=== PATIENT | female | born 1985 | race Caucasian/White ===

== ENCOUNTER 2018-02-14 16:43 | Emergency (ER) | payer OTHER, MEDICAID ==
[~2018-02-14] VITALS: Ht 160 cm; Wt 88.5 kg
[~2018-02-14 16:43] MED LIST: ACEPHEN650 M1 RC; AMBIEN 5 MG TABL5 M1 PO; AMITRIPTYLINE; AMITRIPTYLINE H25 M4 PO; AMITRIPTYLINE H50 M2 PO; AMITRIPTYLINE H75 M1; AMITRIPTYLINE H75 M1 PO; ATIVAN0.5 MG PO; AUGMENTIN 875875 M1 PO; AVELOX 400 MG400 MG; BENADRYL25 MG PO; BENTYL 10 MG CA10 M1 PO; BENTYL 10 MG CA10 MG PO; BENTYL 20 MG TA20 M1; BUSPAR; BUSPAR15 MG PO; CALCIUM 600 +1 EAC1 PO; CARAFATE 1 GM TA1 G1 PO; CARISOPRODOL 3350 MG PO; CIPRO250 M1 PO; CIPROFLOXACIN500 M1 PO; CLEOCIN HCL150 MG PO; CLONAZEPAM 1 MG1 M1 PO; CLONAZEPAM PO; CYCLOBENZAPRINE10 MG; CYMBALTA; DARVOCET-N 1001 EACH PO; DIAZEPAM 5 MG5 M1 PO; DILAUDID1 MG/1 ML IV PUSH; DOXEPIN; DOXYCYCLINE 10100 MG PO; DULCOLAX5 MG PO; ERYTHROMYCIN500 MG PO; FIORICET; FIORICET 50-321 EACH PO; FLAGYL500 MG PO; FLEXERIL PO; HYDROCODONE-AP1 EAC6 PO; IBUPROFEN 800800 M1 PO; KLONOPIN; LEVSIN0.125 MG PO; LIDOCAINE VISC100 M1 SWISH&SPIT; LORTAB; MAALOX ADVANCE355 M1; MAALOX ADVANCE355 M1 PO; MEDROLDOSEPACK PO; MELATONIN3 MG PO; MILK OF MA2400 MG/10 PO; MUCINEX600 MG; NAPROSYN500 MG PO; NOHOMEMEDICATIONS; NORCO 10-325 T1 EACH PO; NORCO 5-325 TA1 EACH PO; NORFLEX100 MG PO; OMEPRAZOLE 20 M20 M1; OMEPRAZOLE 20 M20 M1 PO; ONDANSETRON HCL4 M2 IV; ONDANSETRON HCL4 M2 PO; ONDANSETRON ODT4 MG PO; OXYCODONE HCL5 M1; PARAFON FORTE500 M2; PAXIL; PHENERGAN; PHENERGAN 25 MG25 M1 PO; PHENERGAN 25 MG25 MG PO; PHENERGAN25 M2 RC; PHENERGAN25 MG/1 M1 IV; PRILOSEC 20 MG20 MG PO; PRILOSEC40 MG PO; PROMETHEGAN25 MG RC; PROMS25 WY RECTAL; PYRIDIUM200 MG PO; REGLAN 10 MG TA10 MG PO; REPREXAIN PO; SODIUM CHLORI1000 ML IV; TRINATE TABLET1 TAB PO; TYLENOL325 MG PO; ULTRAM 50MG TAB50 MG PO; VALIUM5 MG PO; VICODIN 5-5001 EACH PO; VISTARIL; ZOFRAN ODT4 MG PO; ZOFRAN ODT4 MG SUBLING; ZOFRAN4 MG; ZPAK PO
[2018-02-14 17:15] LABS: ABSOLUTE BASOPHILS 0.1 thou/uL (0.0-0.2); ABSOLUTE EOSINOPHILS 0.1 thou/uL (0.0-0.7); ABSOLUTE LYMPHOCYTES 1.8 thou/uL (0.8-5.3); ABSOLUTE MONOCYTES 0.6 thou/uL (0.0-1.2); ABSOLUTE NEUTROPHILS 9.1 thou/uL (1.6-8.1); BASOPHILS 0.6 %; EOSINOPHILS 0.8 %; HEMATOCRIT 45.5 % (37.0-47.0); HEMOGLOBIN 15.7 gm/dL (12.0-15.0); LYMPHOCYTES 15.7 %; MCH 32.4 pg (26.0-34.0); MCHC 34.5 g/dL (28.0-37.0); MCV 93.9 fL (80.0-100.0); MONOCYTES 4.8 %; MPV 9.9 fl. (7.2-11.1); NUCLEATED RBCS 0 /100WBC; PLATELET COUNT* 233 thou/uL (150-400); POLYS 78.1 %; RBC 4.84 mil/uL (4.20-5.00); RDW-CV 13.5 % (10.5-14.5); WBC 11.6 thou/uL (4.0-11.0)
[2018-02-14 17:22] LABS: CALCIUM 9.5 mg/dL (8.5-10.1); CREATININE 0.9 mg/dL (0.6-1.3); POTASSIUM 3.5 mmol/L (3.5-5.1)
[2018-02-14 17:26] LABS: ALBUMIN 4.4 g/dL (3.4-5.0); TOTAL BILIRUBIN 0.7 mg/dL (<0.1-1.0); TOTAL PROTEIN 7.7 g/dL (6.4-8.2)
[2018-02-14] MEDS ORDERED: ZOFRAN ODT4 MG SUBLING (17:58)
[2018-02-14] MEDS ORDERED: CARAFATE 1 GM TA1 G1 PO (18:28)
[2018-02-14] MEDS ORDERED: PERCOCET PO (18:28)
[2018-02-14] MEDS ORDERED: ATIVAN1 MG PO (18:28)
[2018-02-14 18:47] VITALS: BP 106/77
== END 2018-02-14 19:24 | disposition home or self-care (01) ==
LOC: M.ERS 16:43
PROVIDERS: Family Medicine
DX: R11.2 Nausea with vomiting, unspecified (principal); J45.909 Unspecified asthma, uncomplicated; G89.29 Other chronic pain; M54.9 Dorsalgia, unspecified; F17.210 Nicotine dependence, cigarettes, uncomplicated; G43.909 Migraine, unspecified, not intractable, without status migrainosus; Z90.89 Acquired absence of other organs; Z90.49 Acquired absence of other specified parts of digestive tract; Z88.1 Allergy status to other antibiotic agents; Z88.0 Allergy status to penicillin; Z88.2 Allergy status to sulfonamides; Z88.5 Allergy status to narcotic agent; Z88.8 Allergy status to other drugs, medicaments and biological substances

== ENCOUNTER 2018-02-16 08:55 | Emergency (ER) | payer OTHER, MEDICAID ==
[~2018-02-16] VITALS: Ht 167.6 cm; Wt 82.1 kg
[~2018-02-16 08:55] MED LIST changes: +ATIVAN1 MG PO; +PERCOCET PO
[2018-02-16 09:24] LABS: ABSOLUTE BASOPHILS 0.1 thou/uL (0.0-0.2); ABSOLUTE EOSINOPHILS 0.1 thou/uL (0.0-0.7); ABSOLUTE LYMPHOCYTES 2.1 thou/uL (0.8-5.3); ABSOLUTE MONOCYTES 0.8 thou/uL (0.0-1.2); ABSOLUTE NEUTROPHILS 10.6 thou/uL (1.6-8.1); BASOPHILS 0.6 %; EOSINOPHILS 0.9 %; HEMATOCRIT 45.2 % (37.0-47.0); HEMOGLOBIN 15.2 gm/dL (12.0-15.0); LYMPHOCYTES 15.7 %; MCH 31.9 pg (26.0-34.0); MCHC 33.7 g/dL (28.0-37.0); MCV 94.6 fL (80.0-100.0); MONOCYTES 5.7 %; MPV 10.2 fl. (7.2-11.1); NUCLEATED RBCS 0 /100WBC; PLATELET COUNT* 215 thou/uL (150-400); POLYS 77.1 %; RBC 4.78 mil/uL (4.20-5.00); RDW-CV 13.3 % (10.5-14.5); WBC 13.7 thou/uL (4.0-11.0)
[2018-02-16 09:39] LABS: CALCIUM 9.4 mg/dL (8.5-10.1); POTASSIUM 3.4 mmol/L (3.5-5.1)
[2018-02-16 09:43] LABS: ALBUMIN 4.4 g/dL (3.4-5.0); TOTAL BILIRUBIN 0.8 mg/dL (<0.1-1.0); TOTAL PROTEIN 7.1 g/dL (6.4-8.2)
[2018-02-16] MEDS ORDERED: BENTYL 20 MG TA20 M1 PO (10:49)
[2018-02-16 10:57] VITALS: BP 107/63
== END 2018-02-16 10:58 | disposition home or self-care (01) ==
LOC: M.ERS 08:55
PROVIDERS: Family Medicine
DX: R11.2 Nausea with vomiting, unspecified (principal); F41.9 Anxiety disorder, unspecified; J45.909 Unspecified asthma, uncomplicated; G89.29 Other chronic pain; M54.9 Dorsalgia, unspecified; G43.909 Migraine, unspecified, not intractable, without status migrainosus; F17.210 Nicotine dependence, cigarettes, uncomplicated; Z90.49 Acquired absence of other specified parts of digestive tract; Z98.890 Other specified postprocedural states; Z88.1 Allergy status to other antibiotic agents; Z88.0 Allergy status to penicillin; Z88.2 Allergy status to sulfonamides; Z88.5 Allergy status to narcotic agent; Z88.8 Allergy status to other drugs, medicaments and biological substances

== ENCOUNTER 2018-02-20 03:22 | Inpatient (IN) | payer OTHER, MEDICAID ==
[~2018-02-20] VITALS: Ht 160 cm; Wt 81.6 kg
[~2018-02-20 03:22] MED LIST changes: +BENTYL 20 MG TA20 M1 PO
[2018-02-20 03:25] VITALS: BP 150/70
[2018-02-20] MEDS ORDERED: CLONAZEPAM 0.50.5 M1 PO (03:32)
[2018-02-20] MEDS ORDERED: TOPAMAX (03:33)
[2018-02-20 03:47] LABS: ABSOLUTE BASOPHILS 0.1 thou/uL (0.0-0.2); ABSOLUTE EOSINOPHILS 0.3 thou/uL (0.0-0.7); ABSOLUTE LYMPHOCYTES 2.2 thou/uL (0.8-5.3); ABSOLUTE MONOCYTES 0.8 thou/uL (0.0-1.2); ABSOLUTE NEUTROPHILS 7.9 thou/uL (1.6-8.1); BASOPHILS 0.6 %; EOSINOPHILS 2.6 %; HEMOGLOBIN 15.3 gm/dL (12.0-15.0); LYMPHOCYTES 19.6 %; MCH 31.8 pg (26.0-34.0); MCHC 34.1 g/dL (28.0-37.0); MCV 93.3 fL (80.0-100.0); MONOCYTES 7.1 %; MPV 10.5 fl. (7.2-11.1); NUCLEATED RBCS 0 /100WBC; PLATELET COUNT* 203 thou/uL (150-400); POLYS 70.1 %; RBC 4.82 mil/uL (4.20-5.00); RDW-CV 13.7 % (10.5-14.5); WBC 11.2 thou/uL (4.0-11.0)
[2018-02-20 03:55] LABS: CALCIUM 9.2 mg/dL (8.5-10.1); CREATININE 0.9 mg/dL (0.6-1.3)
[2018-02-20 04:00] LABS: ALBUMIN 3.8 g/dL (3.4-5.0); TOTAL BILIRUBIN 0.4 mg/dL (<0.1-1.0); TOTAL PROTEIN 6.7 g/dL (6.4-8.2)
[2018-02-20 05:21] LABS: URINE BILIRUBIN NEGATIVE (Negative); URINE BLOOD 1+ (Negative); URINE CLARITY CLEAR; URINE COLOR YELLOW; URINE GLUCOSE-RANDOM NEGATIVE (Negative); URINE KETONES NEGATIVE (Negative); URINE LEUKOCYTES-REFLEX NEGATIVE (Negative); URINE NITRITE-REFLEX NEGATIVE (Negative); URINE PROTEIN NEGATIVE (Negative); URINE SPECIFIC GRAVITY 1.015 (1.005-1.030); URINE UROBILINOGEN 0.2 E.U./dl (0.2-1.0)
[2018-02-20 05:31] LABS: BACTERIA-REFLEX 1-9 Few /HPF (None Seen); SQUAMOUS 4-10 Moderate /LPF (0-3); URINE RBC 3-10 Few /HPF (0-2); URINE WBC-REFLEX 0-5 Rare /HPF (0-5)
[2018-02-20 05:32] LABS: CASTS None Seen /LPF (None Seen); CRYSTALS None Seen /LPF (None Seen); MUCUS 0-3 Light strn/LPF (None Seen)
[2018-02-20 05:33] LABS: AMP/METHAMP Negative (Negative); BARBITURATES Negative (Negative); BENZODIAZEPINES POSITIVE (Negative); COCAINE Negative (Negative); METHADONE Negative (Negative); OPIATES Negative (Negative); PCP Negative (Negative); THC POSITIVE (Negative)
[2018-02-20 05:59] VITALS: BP 125/66
[2018-02-20 07:55] VITALS: BP 122/52
[2018-02-20 16:59] VITALS: BP 91/35
[2018-02-21 00:03] VITALS: BP 106/51
[2018-02-21 08:00] VITALS: BP 102/57
[2018-02-21 16:50] VITALS: BP 98/53
[2018-02-22] VITALS: BP 101/40
[2018-02-22 08:00] VITALS: BP 97/54
[2018-02-22] MEDS ORDERED: TOPAMAX PO (10:20)
[2018-02-22] MEDS ORDERED: PHENERGAN 25 MG25 M1 PO (10:20)
[2018-02-22] MEDS ORDERED: BENTYL 10 MG CA10 M1 PO (10:20)
[2018-02-22 12:51] VITALS: BP 101/40
== END 2018-02-22 15:00 | disposition home or self-care (01) | DRG 103 ==
LOC: M.ERS 03:22 → M.TBA-ER 05:05 → M.3W 05:05
PROVIDERS: Emergency Medicine; ADMIT Internal Medicine
DX: G43.A1 Cyclical vomiting, in migraine, intractable (principal); G43.D0 Abdominal migraine, not intractable; G89.29 Other chronic pain; F17.210 Nicotine dependence, cigarettes, uncomplicated; E87.6 Hypokalemia; F12.10 Cannabis abuse, uncomplicated; J45.909 Unspecified asthma, uncomplicated; E66.9 Obesity, unspecified; M54.9 Dorsalgia, unspecified; Z98.890 Other specified postprocedural states; Z90.49 Acquired absence of other specified parts of digestive tract; Z88.6 Allergy status to analgesic agent; Z88.0 Allergy status to penicillin; Z88.2 Allergy status to sulfonamides; Z88.8 Allergy status to other drugs, medicaments and biological substances; Z68.31 Body mass index [BMI] 31.0-31.9, adult; Z79.2 Long term (current) use of antibiotics; Z79.899 Other long term (current) drug therapy

== ENCOUNTER 2018-09-12 01:37 | Emergency (ER) | payer OTHER, MEDICAID ==
[~2018-09-12] VITALS: Ht 162.6 cm; Wt 77.6 kg
[~2018-09-12 01:37] MED LIST changes: +CLONAZEPAM 0.50.5 M1 PO; +TOPAMAX; +TOPAMAX PO
[2018-09-12 03:07] LABS: INFLUENZA A ANTIGEN None Detected (None Detect); INFLUENZA B ANTIGEN None Detected (None Detect)
[2018-09-12] MEDS ORDERED: ZOFRAN ODT4 MG PO (03:09)
[2018-09-12 03:55] VITALS: BP 112/47
== END 2018-09-12 03:56 | disposition home or self-care (01) ==
LOC: M.ERS 01:37
PROVIDERS: Emergency Medicine
DX: J06.9 Acute upper respiratory infection, unspecified (principal); J45.909 Unspecified asthma, uncomplicated; G43.909 Migraine, unspecified, not intractable, without status migrainosus; F17.210 Nicotine dependence, cigarettes, uncomplicated; Z88.0 Allergy status to penicillin; Z88.1 Allergy status to other antibiotic agents; Z88.2 Allergy status to sulfonamides; Z88.5 Allergy status to narcotic agent; Z88.8 Allergy status to other drugs, medicaments and biological substances; Z98.890 Other specified postprocedural states; Z90.49 Acquired absence of other specified parts of digestive tract

== ENCOUNTER 2019-01-07 00:02 | Emergency (ER) | payer OTHER, MEDICAID ==
[~2019-01-07] VITALS: Ht 160 cm; Wt 81.7 kg
[2019-01-07] MEDS ORDERED: TOPAMAX50 MG (00:21)
[2019-01-07] MEDS ORDERED: REGLAN 10 MG TA10 MG PO (03:21)
[2019-01-07 04:16] VITALS: BP 112/43
== END 2019-01-07 04:17 | disposition home or self-care (01) ==
LOC: M.ERS 00:02
DX: R11.2 Nausea with vomiting, unspecified (principal); F17.210 Nicotine dependence, cigarettes, uncomplicated; J45.909 Unspecified asthma, uncomplicated; G43.909 Migraine, unspecified, not intractable, without status migrainosus; M54.9 Dorsalgia, unspecified; G89.29 Other chronic pain; Z88.8 Allergy status to other drugs, medicaments and biological substances; Z88.0 Allergy status to penicillin; Z88.2 Allergy status to sulfonamides; Z88.1 Allergy status to other antibiotic agents; Z98.890 Other specified postprocedural states; Z90.89 Acquired absence of other organs; Z90.49 Acquired absence of other specified parts of digestive tract

== ENCOUNTER 2019-07-04 00:16 | Emergency (ER) | payer OTHER, MEDICAID ==
[~2019-07-04] VITALS: Ht 160 cm; Wt 79.4 kg
[~2019-07-04 00:16] MED LIST changes: +DEPO-PROVE150 MG/11; +TOPAMAX50 MG
[2019-07-04] MEDS ORDERED: BENADRYL25 MG PO (00:27)
[2019-07-04 01:14] LABS: ACETEST (KETONE CONFIRMATORY) Negative (Negative); ICTOTEST (BILI CONFIRMATORY) Negative (Negative); URINE BLOOD 2+ (Negative); URINE CLARITY CLEAER; URINE COLOR YELLOW; URINE LEUKOCYTES-REFLEX NEGATIVE (Negative); URINE NITRITE-REFLEX NEGATIVE (Negative); URINE PROTEIN NEGATIVE (Negative); URINE REDUCING SUBSTANCE NEGATIVE (Negative); URINE SPECIFIC GRAVITY < 1.005 (1.005-1.030); URINE UROBILINOGEN 0.2 E.U./dl (0.2-1.0)
[2019-07-04 01:20] LABS: AMP/METHAMP Negative (Negative); BACTERIA-REFLEX 1-9 Few /HPF (None Seen); BARBITURATES Negative (Negative); BENZODIAZEPINES Negative (Negative); CASTS None Seen /LPF (None Seen); COCAINE Negative (Negative); CRYSTALS None Seen /LPF (None Seen); METHADONE Negative (Negative); MUCUS 0-3 Light strn/LPF (None Seen); OPIATES Negative (Negative); PCP Negative (Negative); SQUAMOUS 0-3 Few /LPF (0-3); THC POSITIVE (Negative); URINE BILIRUBIN NEGATIVE (Negative); URINE GLUCOSE-RANDOM NEGATIVE (Negative); URINE KETONES NEGATIVE (Negative); URINE WBC-REFLEX None Seen /HPF (0-5)
[2019-07-04 01:21] LABS: HEMOGLOBIN 14.2 gm/dL (12.0-15.0); MCH 31.9 pg (26.0-34.0); MCHC 34.6 g/dL (28.0-37.0); MCV 92.2 fL (80.0-100.0); MPV 8.8 fl. (7.2-11.1); RBC 4.45 mil/uL (4.20-5.00); RDW-CV 13.3 % (10.5-14.5)
[2019-07-04 01:28] LABS: CALCIUM 10.3 mg/dL (8.5-10.1); CREATININE 0.7 mg/dL (0.6-1.3); POTASSIUM 3.7 mmol/L (3.5-5.1)
[2019-07-04 03:16] VITALS: BP 94/50
== END 2019-07-04 03:19 | disposition home or self-care (01) ==
LOC: M.ERS 00:16
PROVIDERS: Personal Emergency Response Attendant
DX: G43.909 Migraine, unspecified, not intractable, without status migrainosus (principal); G89.29 Other chronic pain; R10.84 Generalized abdominal pain; R11.2 Nausea with vomiting, unspecified; J45.909 Unspecified asthma, uncomplicated; F17.210 Nicotine dependence, cigarettes, uncomplicated; Z88.1 Allergy status to other antibiotic agents; Z88.0 Allergy status to penicillin; Z88.2 Allergy status to sulfonamides; Z88.8 Allergy status to other drugs, medicaments and biological substances; Z98.890 Other specified postprocedural states; Z90.49 Acquired absence of other specified parts of digestive tract; Z79.899 Other long term (current) drug therapy

== ENCOUNTER 2020-01-04 08:09 | Emergency (ER) | payer OTHER ==
[~2020-01-04] VITALS: Ht 162.6 cm; Wt 81.7 kg
[2020-01-04 09:16] VITALS: BP 125/78
== END 2020-01-04 09:20 | disposition home or self-care (01) ==
LOC: M.ERS 08:09
DX: R11.15 Cyclical vomiting syndrome unrelated to migraine (principal); J45.909 Unspecified asthma, uncomplicated; M54.9 Dorsalgia, unspecified; G43.909 Migraine, unspecified, not intractable, without status migrainosus; G89.29 Other chronic pain; F17.210 Nicotine dependence, cigarettes, uncomplicated; Z98.890 Other specified postprocedural states; Z90.49 Acquired absence of other specified parts of digestive tract; Z88.0 Allergy status to penicillin; Z88.1 Allergy status to other antibiotic agents; Z88.8 Allergy status to other drugs, medicaments and biological substances

== ENCOUNTER 2020-01-06 02:32 | Emergency (ER) | payer OTHER, MEDICAID ==
[~2020-01-06] VITALS: Ht 162.6 cm; Wt 81.7 kg
[2020-01-06 03:29] LABS: ABSOLUTE BASOPHILS 0.1 thou/uL (0.0-0.2); ABSOLUTE EOSINOPHILS 0.1 thou/uL (0.0-0.7); ABSOLUTE LYMPHOCYTES 3.3 thou/uL (0.8-5.3); ABSOLUTE MONOCYTES 0.9 thou/uL (0.0-1.2); ABSOLUTE NEUTROPHILS 9.4 thou/uL (1.6-8.1); BASOPHILS 0.6 %; EOSINOPHILS 0.5 %; HEMATOCRIT 42.2 % (37.0-47.0); HEMOGLOBIN 14.6 gm/dL (12.0-15.0); LYMPHOCYTES 23.8 %; MCH 31.8 pg (26.0-34.0); MCHC 34.7 g/dL (28.0-37.0); MCV 91.7 fL (80.0-100.0); MONOCYTES 6.9 %; MPV 9.8 fl. (7.2-11.1); NUCLEATED RBCS 0 /100WBC; PLATELET COUNT* 222 thou/uL (150-400); POLYS 68.2 %; RDW-CV 14.3 % (10.5-14.5); WBC 13.8 thou/uL (4.0-11.0)
[2020-01-06 03:29] LABS: URINE BILIRUBIN 1+ (Negative); URINE BLOOD 3+ (Negative); URINE CLARITY CLEAR; URINE COLOR YELLOW; URINE GLUCOSE-RANDOM NEGATIVE (Negative); URINE KETONES TRACE (Negative); URINE LEUKOCYTES-REFLEX NEGATIVE (Negative); URINE NITRITE-REFLEX NEGATIVE (Negative); URINE PROTEIN TRACE (Negative); URINE SPECIFIC GRAVITY >= 1.030 (1.005-1.030); URINE UROBILINOGEN 0.2 E.U./dl (0.2-1.0)
[2020-01-06 03:32] LABS: ICTOTEST (BILI CONFIRMATORY) Negative (Negative)
[2020-01-06 03:36] LABS: CALCIUM 9.2 mg/dL (8.5-10.1); CREATININE 1.1 mg/dL (0.6-1.3); POTASSIUM 3.2 mmol/L (3.5-5.1)
[2020-01-06 03:40] LABS: ALBUMIN 4.5 g/dL (3.4-5.0); TOTAL BILIRUBIN 0.7 mg/dL (<0.1-1.0); TOTAL PROTEIN 7.7 g/dL (6.4-8.2)
[2020-01-06 03:46] VITALS: BP 97/52
[2020-01-06 04:01] LABS: CASTS None Seen /LPF (None Seen); MUCUS 4-6 Moderate strn/LPF (None Seen); SQUAMOUS >10 Many /LPF (0-3)
[2020-01-06 04:02] LABS: BACTERIA-REFLEX 1-9 Few /HPF (None Seen); CRYSTALS None Seen /LPF (None Seen); URINE RBC 3-10 Few /HPF (0-2); URINE WBC-REFLEX 0-5 Rare /HPF (0-5)
[2020-01-06] MEDS ORDERED: ZOFRAN8 MG PO (15:38)
[2020-01-06] MEDS ORDERED: BENTYL 20 MG TA20 M1 PO (15:39)
== END 2020-01-06 03:47 | disposition home or self-care (01) ==
LOC: M.ERS 02:32
PROVIDERS: Family Medicine
DX: R11.15 Cyclical vomiting syndrome unrelated to migraine (principal); J45.909 Unspecified asthma, uncomplicated; G43.909 Migraine, unspecified, not intractable, without status migrainosus; G89.29 Other chronic pain; F17.210 Nicotine dependence, cigarettes, uncomplicated; Z76.5 Malingerer [conscious simulation]; Z90.49 Acquired absence of other specified parts of digestive tract; Z98.890 Other specified postprocedural states; Z90.89 Acquired absence of other organs; Z88.0 Allergy status to penicillin; Z88.1 Allergy status to other antibiotic agents; Z88.8 Allergy status to other drugs, medicaments and biological substances

== ENCOUNTER 2020-01-06 13:29 | Emergency (ER) | payer OTHER ==
[~2020-01-06] VITALS: Ht 162.6 cm; Wt 81.7 kg
[2020-01-06 14:13] LABS: ABSOLUTE LYMPHOCYTES 1.8 thou/uL (0.8-5.3); ABSOLUTE MONOCYTES 0.7 thou/uL (0.0-1.2); ABSOLUTE NEUTROPHILS 7.3 thou/uL (1.6-8.1); BASOPHILS 0.4 %; EOSINOPHILS 0.1 %; LYMPHOCYTES 18.5 %; MCH 32.1 pg (26.0-34.0); MCHC 34.9 g/dL (28.0-37.0); MONOCYTES 6.7 %; MPV 9.3 fl. (7.2-11.1); NUCLEATED RBCS 0 /100WBC; PLATELET COUNT* 199 thou/uL (150-400); POLYS 74.3 %; RBC 4.35 mil/uL (4.20-5.00); RDW-CV 14.2 % (10.5-14.5); WBC 9.8 thou/uL (4.0-11.0)
[2020-01-06 14:15] LABS: AMP/METHAMP Negative (Negative); BARBITURATES Negative (Negative); BENZODIAZEPINES Negative (Negative); COCAINE Negative (Negative); METHADONE Negative (Negative); OPIATES Negative (Negative); PCP Negative (Negative); THC POSITIVE (Negative)
[2020-01-06 14:24] LABS: CALCIUM 8.5 mg/dL (8.5-10.1); POTASSIUM 3.1 mmol/L (3.5-5.1)
[2020-01-06 14:28] LABS: ALBUMIN 4.1 g/dL (3.4-5.0); TOTAL BILIRUBIN 0.6 mg/dL (<0.1-1.0); TOTAL PROTEIN 7.1 g/dL (6.4-8.2)
[2020-01-06] MEDS ORDERED: ZOFRAN8 MG PO (15:38)
[2020-01-06] MEDS ORDERED: BENTYL 20 MG TA20 M1 PO (15:39)
[2020-01-06 15:43] LABS: URINE BLOOD 3+ (Negative); URINE CLARITY CLEAR; URINE COLOR YELLOW; URINE GLUCOSE-RANDOM NEGATIVE (Negative); URINE KETONES 1+ (Negative); URINE LEUKOCYTES-REFLEX NEGATIVE (Negative); URINE NITRITE-REFLEX NEGATIVE (Negative); URINE PROTEIN TRACE (Negative); URINE SPECIFIC GRAVITY >= 1.030 (1.005-1.030); URINE UROBILINOGEN 0.2 E.U./dl (0.2-1.0)
[2020-01-06 15:45] LABS: URINE BILIRUBIN 2+ (Negative)
[2020-01-06 15:47] LABS: ICTOTEST (BILI CONFIRMATORY) Negative (Negative)
[2020-01-06 15:49] LABS: MUCUS >6 Heavy strn/LPF (None Seen); SQUAMOUS >10 Many /LPF (0-3)
[2020-01-06 15:50] LABS: BACTERIA-REFLEX 1-9 Few /HPF (None Seen); CRYSTALS None Seen /LPF (None Seen); URINE RBC 3-10 Few /HPF (0-2)
[2020-01-06 15:52] LABS: CASTS None Seen /LPF (None Seen); URINE WBC-REFLEX 0-5 Rare /HPF (0-5); YEAST-REFLEX Present (None Seen)
[2020-01-06 17:08] VITALS: BP 107/54
--- NOTE | 2020-01-07 17:30 | EKG ---
[place] [address] ELECTROCARDIOGRAM REPORT Name: KATARZYNA BAUERI ELIAS Room: [facility]#: [id number] Admission: 01/06/20 Attend Phys: Discharge: 01/06/20 Date of : 87 Date of Service: 01/06/20 1544 Report #: [id number] THIS REPORT FOR: //name// [facility] ED Test Date: 2020-01-06 Test Time: 15:44:02 Pat Name: THOMAS BAUER Department: Room: Gender: Beater Out: : 1985 Requested By: Susana Green Order Number: [id number] MD: Wei Kirby Measurements Intervals [place] Rate: 57 P: 63 OR: 124 QRS: 68 QRSD: 108 T: 16 QT: 445 QTc: 434 Interpretive Statements Sinus arrhythmia Nonspecific T-wave inversion Compared to ECG 03/08/2015 13:09:45 Sinus bradycardia no longer present Electronically Signed On 01-07-2020 17:28:28 CDT by Wei Kirby [email or web address] <ELECTRONICALLY SIGNED> By: Wei Kirby MD, [facility] 01/07/20 1728 1544 1544 Wei Kirby MD, [facility] /EPI
== END 2020-01-06 17:09 | disposition home or self-care (01) ==
LOC: M.ERS 13:29
PROVIDERS: Nurse Practitioner Family
DX: R11.15 Cyclical vomiting syndrome unrelated to migraine (principal); R10.84 Generalized abdominal pain; J45.909 Unspecified asthma, uncomplicated; M54.9 Dorsalgia, unspecified; G43.909 Migraine, unspecified, not intractable, without status migrainosus; G89.29 Other chronic pain; F17.210 Nicotine dependence, cigarettes, uncomplicated; Z76.5 Malingerer [conscious simulation]; Z98.890 Other specified postprocedural states; Z90.49 Acquired absence of other specified parts of digestive tract; Z88.0 Allergy status to penicillin; Z88.1 Allergy status to other antibiotic agents; Z88.8 Allergy status to other drugs, medicaments and biological substances

== ENCOUNTER 2020-03-11 22:42 | Emergency (ER) | payer OTHER, MEDICAID ==
[~2020-03-11] VITALS: Ht 160 cm; Wt 81.7 kg
[~2020-03-11 22:42] MED LIST changes: +ZOFRAN8 MG PO
[2020-03-11 23:11] LABS: ABSOLUTE LYMPHOCYTES 1.3 thou/uL (0.8-5.3); ABSOLUTE MONOCYTES 0.4 thou/uL (0.0-1.2); ABSOLUTE NEUTROPHILS 7.8 thou/uL (1.6-8.1); BASOPHILS 0.3 %; EOSINOPHILS 0.3 %; HEMATOCRIT 44.9 % (37.0-47.0); HEMOGLOBIN 15.6 gm/dL (12.0-15.0); LYMPHOCYTES 13.6 %; MCHC 34.7 g/dL (28.0-37.0); MCV 92.3 fL (80.0-100.0); MONOCYTES 4.1 %; MPV 9.4 fl. (7.2-11.1); NUCLEATED RBCS 0 /100WBC; PLATELET COUNT* 236 thou/uL (150-400); POLYS 81.7 %; RBC 4.86 mil/uL (4.20-5.00); RDW-CV 13.7 % (10.5-14.5); WBC 9.6 thou/uL (4.0-11.0)
[2020-03-11 23:15] LABS: CALCIUM 9.5 mg/dL (8.5-10.1); POTASSIUM 4.3 mmol/L (3.5-5.1)
[2020-03-11 23:19] LABS: ALBUMIN 4.7 g/dL (3.4-5.0); MAGNESIUM 1.8 mg/dL (1.8-2.4); TOTAL BILIRUBIN 0.4 mg/dL (<0.1-1.0); TOTAL PROTEIN 8.2 g/dL (6.4-8.2)
[2020-03-12] MEDS ORDERED: REGLAN 10 MG TA10 MG PO (00:19)
[2020-03-12 00:53] VITALS: BP 99/45
== END 2020-03-12 00:56 | disposition home or self-care (01) ==
LOC: M.ERS 22:42
PROVIDERS: Emergency Medicine
DX: G43.A0 Cyclical vomiting, in migraine, not intractable (principal); F17.210 Nicotine dependence, cigarettes, uncomplicated; F12.10 Cannabis abuse, uncomplicated; G89.29 Other chronic pain; R19.7 Diarrhea, unspecified; J45.909 Unspecified asthma, uncomplicated; G43.909 Migraine, unspecified, not intractable, without status migrainosus; Z88.0 Allergy status to penicillin; Z88.2 Allergy status to sulfonamides; Z88.1 Allergy status to other antibiotic agents; Z88.8 Allergy status to other drugs, medicaments and biological substances; Z90.49 Acquired absence of other specified parts of digestive tract

== ENCOUNTER 2020-04-16 14:10 | Emergency (ER) | payer OTHER, MEDICAID ==
[~2020-04-16] VITALS: Ht 162.6 cm; Wt 83.5 kg
[2020-04-16 14:48] LABS: ABSOLUTE EOSINOPHILS 0.1 thou/uL (0.0-0.7); ABSOLUTE LYMPHOCYTES 1.4 thou/uL (0.8-5.3); ABSOLUTE MONOCYTES 0.5 thou/uL (0.0-1.2); ABSOLUTE NEUTROPHILS 8.4 thou/uL (1.6-8.1); BASOPHILS 0.4 %; EOSINOPHILS 0.9 %; HEMATOCRIT 42.1 % (37.0-47.0); HEMOGLOBIN 14.6 gm/dL (12.0-15.0); LYMPHOCYTES 13.7 %; MCH 32.2 pg (26.0-34.0); MCHC 34.7 g/dL (28.0-37.0); MCV 92.8 fL (80.0-100.0); MONOCYTES 4.6 %; MPV 8.9 fl. (7.2-11.1); NUCLEATED RBCS 0 /100WBC; PLATELET COUNT* 258 thou/uL (150-400); POLYS 80.4 %; RBC 4.53 mil/uL (4.20-5.00); RDW-CV 14.3 % (10.5-14.5); WBC 10.4 thou/uL (4.0-11.0)
[2020-04-16 14:57] LABS: CALCIUM 8.8 mg/dL (8.5-10.1); CREATININE 0.8 mg/dL (0.6-1.3); POTASSIUM 3.8 mmol/L (3.5-5.1)
[2020-04-16 15:01] LABS: ALBUMIN 4.2 g/dL (3.4-5.0); TOTAL BILIRUBIN 0.4 mg/dL (<0.1-1.0); TOTAL PROTEIN 7.4 g/dL (6.4-8.2)
[2020-04-16] MEDS ORDERED: ONDANSETRON ODT4 MG PO (15:15)
[2020-04-16 15:54] VITALS: BP 132/80
--- NOTE | 2020-04-16 16:45 | EKG ---
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1985 Requested By: Destiney Velasquez Order Number: [id number] MD: Niels eLal Measurements Intervals [place] Rate: 51 P: 67 [place]: 131 QRS: 75 QRSD: 128 T: 32 QT: 461 QTc: 425 Interpretive Statements Sinus arrhythmia Nonspecific intraventricular conduction delay Compared to ECG 01/06/2020 15:44:02 no change Electronically Signed On 04-16-2020 16:45:30 CDT by Niels Leal [email or web address] <ELECTRONICALLY SIGNED> By: Niels Leal MD, [facility] 04/16/20 1645 1429 1429 Niels Leal MD, [facility] /EPI
== END 2020-04-16 15:25 | disposition home or self-care (01) ==
LOC: M.ERS 14:10
PROVIDERS: Physician Assistant
DX: R11.15 Cyclical vomiting syndrome unrelated to migraine (principal); R11.2 Nausea with vomiting, unspecified; J45.909 Unspecified asthma, uncomplicated; G43.909 Migraine, unspecified, not intractable, without status migrainosus; G89.29 Other chronic pain; F17.210 Nicotine dependence, cigarettes, uncomplicated; Z76.5 Malingerer [conscious simulation]; Z98.890 Other specified postprocedural states; Z90.49 Acquired absence of other specified parts of digestive tract; Z88.0 Allergy status to penicillin; Z88.1 Allergy status to other antibiotic agents; Z88.2 Allergy status to sulfonamides; Z88.8 Allergy status to other drugs, medicaments and biological substances

== ENCOUNTER 2020-04-18 09:14 | Emergency (ER) | payer OTHER, MEDICAID ==
[~2020-04-18] VITALS: Ht 162.6 cm; Wt 83.9 kg
[2020-04-18 09:59] LABS: ABSOLUTE LYMPHOCYTES 1.4 thou/uL (0.8-5.3); ABSOLUTE MONOCYTES 0.4 thou/uL (0.0-1.2); ABSOLUTE NEUTROPHILS 9.2 thou/uL (1.6-8.1); BASOPHILS 0.3 %; EOSINOPHILS 0.1 %; HEMATOCRIT 41.1 % (37.0-47.0); HEMOGLOBIN 14.6 gm/dL (12.0-15.0); LYMPHOCYTES 12.3 %; MCH 32.6 pg (26.0-34.0); MCHC 35.4 g/dL (28.0-37.0); MCV 91.9 fL (80.0-100.0); MONOCYTES 3.4 %; MPV 8.8 fl. (7.2-11.1); NUCLEATED RBCS 0 /100WBC; PLATELET COUNT* 227 thou/uL (150-400); POLYS 83.9 %; RBC 4.48 mil/uL (4.20-5.00); RDW-CV 14.1 % (10.5-14.5)
[2020-04-18 10:12] LABS: APTT 25.6 Seconds (25.0-31.3); INR 1.1; PROTIME 10.9 Seconds (9.20-11.50)
[2020-04-18 10:14] LABS: CALCIUM 8.6 mg/dL (8.5-10.1); CREATININE 0.9 mg/dL (0.6-1.3); POTASSIUM 3.4 mmol/L (3.5-5.1)
[2020-04-18 10:25] LABS: ALBUMIN 4.4 g/dL (3.4-5.0); MAGNESIUM 1.9 mg/dL (1.8-2.4); TOTAL BILIRUBIN 0.8 mg/dL (<0.1-1.0); TOTAL PROTEIN 7.7 g/dL (6.4-8.2)
[2020-04-18] MEDS ORDERED: CARAFATE 1 GM TA1 G1 PO (13:36)
[2020-04-18 14:15] VITALS: BP 95/52
--- NOTE | 2020-04-18 14:20 | EKG ---
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1985 Requested By: Tito Winn Order Number: [id number] MD: Niels Leal Measurements Intervals [place] Rate: 103 P: 22 [place]: 121 QRS: 79 QRSD: 98 T: -58 QT: 448 QTc: 587 Interpretive Statements Sinus tachycardia Repol abnrm suggests ischemia, diffuse leads artifact noted Prolonged QT interval Compared to ECG 04/16/2020 14:29:36 Possible ischemia now present ST (T wave) deviation now present Prolonged QT interval now present Sinus arrhythmia no longer present Electronically Signed On 04-18-2020 14:20:22 CDT by Niels Leal [email or web address] <ELECTRONICALLY SIGNED> By: Niels Leal MD, [facility] 04/18/20 1420 2 2 Niels Leal MD, [facility] /EPI
--- NOTE | 2020-04-19 09:53 | EKG ---
[place] [address] ELECTROCARDIOGRAM REPORT Name: BAUERTHOMAS Room: [facility]#: [id number] Admission: 04/18/20 Attend Phys: Discharge: 04/18/20 Date of : [birth year] Date of Service: 04/18/20 1241 Report #: [id number] THIS REPORT FOR: //name// [facility] ED Test Date: 2020-04-18 Test Time: 12:41:16 Pat Name: THOMAS BAUER Department: Room: Gender: F Rn Transitional: CCD : 1985 Requested By: Tito Winn Order Number: [id number] MD: Niels Leal Measurements Intervals [place] Rate: 53 P: 49 [place]: 124 QRS: 68 QRSD: 101 T: 30 QT: 460 QTc: 432 Interpretive Statements Sinus bradycardia Compared to ECG 04/18/2020 09:23:05 Sinus tachycardia no longer present Early repolarization no longer present Possible ischemia no longer present Prolonged QT interval no longer present Electronically Signed On 04-19-2020 9:53:48 CDT by Niels Leal [email or web address] <ELECTRONICALLY SIGNED> By: Niels Leal MD, [facility] 04/19/20 0953 1241 1241 Niels Leal MD, [facility] /EPI
== END 2020-04-18 14:16 | disposition home or self-care (01) ==
LOC: M.ERS 09:14
PROVIDERS: Emergency Medicine Emergency Medical Services
DX: R07.89 Other chest pain (principal); J45.909 Unspecified asthma, uncomplicated; G89.29 Other chronic pain; G43.909 Migraine, unspecified, not intractable, without status migrainosus; F17.210 Nicotine dependence, cigarettes, uncomplicated; Z90.89 Acquired absence of other organs; Z90.49 Acquired absence of other specified parts of digestive tract; Z88.1 Allergy status to other antibiotic agents; Z88.0 Allergy status to penicillin; Z88.2 Allergy status to sulfonamides; Z88.8 Allergy status to other drugs, medicaments and biological substances

== ENCOUNTER 2020-07-13 00:08 | Emergency (ER) | payer OTHER, MEDICAID ==
[~2020-07-13] VITALS: Ht 162.6 cm; Wt 81.7 kg
[2020-07-13 00:46] LABS: ABSOLUTE BASOPHILS 0.1 thou/uL (0.0-0.2); ABSOLUTE LYMPHOCYTES 1.4 thou/uL (0.8-5.3); ABSOLUTE MONOCYTES 0.5 thou/uL (0.0-1.2); ABSOLUTE NEUTROPHILS 10.1 thou/uL (1.6-8.1); BASOPHILS 0.6 %; EOSINOPHILS 0.1 %; HEMATOCRIT 43.7 % (37.0-47.0); LYMPHOCYTES 11.6 %; MCH 31.8 pg (26.0-34.0); MCHC 34.4 g/dL (28.0-37.0); MCV 92.4 fL (80.0-100.0); MPV 8.7 fl. (7.2-11.1); NUCLEATED RBCS 0 /100WBC; PLATELET COUNT* 251 thou/uL (150-400); POLYS 83.7 %; RBC 4.73 mil/uL (4.20-5.00); RDW-CV 13.6 % (10.5-14.5); WBC 12.1 thou/uL (4.0-11.0)
[2020-07-13 00:56] LABS: CALCIUM 9.9 mg/dL (8.5-10.1); POTASSIUM 3.5 mmol/L (3.5-5.1)
[2020-07-13 01:06] LABS: ALBUMIN 4.3 g/dL (3.4-5.0); MAGNESIUM 1.8 mg/dL (1.8-2.4); TOTAL BILIRUBIN 0.6 mg/dL (<0.1-1.0); TOTAL PROTEIN 8.1 g/dL (6.4-8.2)
[2020-07-13] MEDS ORDERED: ZOFRAN ODT4 MG DISSOLVE (02:43)
[2020-07-13 03:06] VITALS: BP 112/57
--- NOTE | 2020-07-13 09:38 | EKG ---
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 : 1985 Requested By: Tito Winn Order Number: [id number] MD: Wei Kirby Measurements Intervals [place] Rate: 64 P: 50 [place]: 130 QRS: 71 QRSD: 110 T: 19 QT: 438 QTc: 452 Interpretive Statements Sinus rhythm Atrial premature complex Minimal ST depression, inferior leads Compared to ECG 04/18/2020 12:41:16 Atrial premature complex(es) now present ST (T wave) deviation now present Sinus bradycardia no longer present Electronically Signed On 07-13-2020 9:38:[address] JUDGE by Wei Kirby [email or web address] <ELECTRONICALLY SIGNED> By: Wei Kiryb MD, FACC 07/13/20 0938 0014 0014 Wei Kirby MD, FAC /EPI
[2020-07-14] MEDS ORDERED: CLONAZEPAM 0.50.5 M1 PO (15:24)
[2020-07-14] MEDS ORDERED: TOPAMAX100 MG PO (15:24)
[2020-07-14] MEDS ORDERED: PHENERGAN 25 MG25 MG PO (15:25)
[2020-07-14] MEDS ORDERED: HYDROXYZINE HCL50 MG PO (15:26)
== END 2020-07-13 03:06 | disposition home or self-care (01) ==
LOC: M.ERS 00:08
PROVIDERS: Emergency Medicine Emergency Medical Services
DX: R11.15 Cyclical vomiting syndrome unrelated to migraine (principal); J45.909 Unspecified asthma, uncomplicated; G89.29 Other chronic pain; G43.909 Migraine, unspecified, not intractable, without status migrainosus; F17.210 Nicotine dependence, cigarettes, uncomplicated; Z88.1 Allergy status to other antibiotic agents; Z88.0 Allergy status to penicillin; Z88.2 Allergy status to sulfonamides; Z88.8 Allergy status to other drugs, medicaments and biological substances; Z90.89 Acquired absence of other organs; Z98.890 Other specified postprocedural states; Z90.49 Acquired absence of other specified parts of digestive tract

== ENCOUNTER 2020-07-14 14:55 | Emergency (ER) | payer OTHER, MEDICAID ==
[~2020-07-14] VITALS: Ht 162.6 cm; Wt 81.7 kg
[~2020-07-14 14:55] MED LIST changes: +ZOFRAN ODT4 MG DISSOLVE
[2020-07-14] MEDS ORDERED: TOPAMAX100 MG PO (15:24)
[2020-07-14] MEDS ORDERED: CLONAZEPAM 0.50.5 M1 PO (15:24)
[2020-07-14] MEDS ORDERED: PHENERGAN 25 MG25 MG PO (15:25)
[2020-07-14] MEDS ORDERED: HYDROXYZINE HCL50 MG PO (15:26)
[2020-07-14 16:27] VITALS: BP 113/81
== END 2020-07-14 16:48 | disposition home or self-care (01) ==
LOC: M.ERS 14:55
DX: Z53.21 Procedure and treatment not carried out due to patient leaving prior to being seen by health care provider (principal)

== ENCOUNTER 2020-10-19 13:07 | Emergency (ER) | payer OTHER, MEDICAID ==
[~2020-10-19] VITALS: Ht 160 cm; Wt 83.9 kg
[~2020-10-19 13:07] MED LIST changes: +HYDROXYZINE HCL50 MG PO; +TOPAMAX100 MG PO
[2020-10-19 13:32] LABS: ABSOLUTE BASOPHILS 0.1 thou/uL (0.0-0.2); ABSOLUTE LYMPHOCYTES 1.2 thou/uL (0.8-5.3); ABSOLUTE MONOCYTES 1.7 thou/uL (0.0-1.2); ABSOLUTE NEUTROPHILS 15.6 thou/uL (1.6-8.1); BASOPHILS 0.5 %; HEMATOCRIT 41.2 % (37.0-47.0); HEMOGLOBIN 14.2 gm/dL (12.0-15.0); LYMPHOCYTES 6.5 %; MCHC 34.4 g/dL (28.0-37.0); MONOCYTES 9.2 %; MPV 9.4 fl. (7.2-11.1); NUCLEATED RBCS 0 /100WBC; PLATELET COUNT* 211 thou/uL (150-400); POLYS 83.8 %; RBC 4.43 mil/uL (4.20-5.00); WBC 18.6 thou/uL (4.0-11.0)
[2020-10-19 13:35] LABS: URINE BLOOD 3+ (Negative); URINE CLARITY CLOUDY; URINE COLOR DARK YELLOW; URINE GLUCOSE-RANDOM NEGATIVE (Negative); URINE PROTEIN 2+ (Negative); URINE SPECIFIC GRAVITY >= 1.030 (1.005-1.030)
[2020-10-19 13:40] LABS: CALCIUM 9.7 mg/dL (8.5-10.1); CREATININE 0.9 mg/dL (0.6-1.3); POTASSIUM 3.3 mmol/L (3.5-5.1)
[2020-10-19 13:41] LABS: ICTOTEST (BILI CONFIRMATORY) Positive (Negative); URINE BILIRUBIN 1+ (Negative); URINE KETONES 3+ (Negative); URINE LEUKOCYTES-REFLEX 2+ (Negative); URINE NITRITE-REFLEX POSITIVE (Negative)
[2020-10-19 13:44] LABS: AMP/METHAMP Negative (Negative); BARBITURATES Negative (Negative); BENZODIAZEPINES POSITIVE (Negative); COCAINE Negative (Negative); METHADONE Negative (Negative); OPIATES POSITIVE (Negative); PCP Negative (Negative); THC POSITIVE (Negative); TOTAL BILIRUBIN 0.8 mg/dL (<0.1-1.0); TOTAL PROTEIN 7.7 g/dL (6.4-8.2)
[2020-10-19 13:45] LABS: SQUAMOUS NONE SEEN /LPF (0-3)
[2020-10-19 13:49] LABS: WBC CLUMPS Few (None Seen)
[2020-10-19 13:50] LABS: CASTS None Seen /LPF (None Seen); CRYSTALS None Seen /LPF (None Seen); MUCUS >6 Heavy strn/LPF (None Seen)
[2020-10-19] MEDS ORDERED: BENTYL 10 MG CA10 M1 PO (14:27)
[2020-10-19] MEDS ORDERED: PHENAZOPYRIDIN200 M2 PO (14:27)
[2020-10-19] MEDS ORDERED: PROMS25 WY RECTAL (14:27)
[2020-10-19] MEDS ORDERED: MACROBID 100 M100 M2 PO (14:27)
[2020-10-19] MEDS ORDERED: PHENERGAN 25 MG25 M1 PO (14:27)
[2020-10-19 15:35] VITALS: BP 132/59
--- NOTE | 2020-10-20 14:13 | EKG ---
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: DEBO : 1985 Requested By: Susana Green Order Number: [id number] MD: Ashu Brown Measurements Intervals [place] Rate: 63 P: 56 [place]: 129 QRS: 75 QRSD: 114 T: 9 QT: 420 QTc: 430 Interpretive Statements Sinus arrhythmia Borderline intraventricular conduction delay Minimal ST depression, inferior leads Baseline wander in lead(s) V2 Compared to ECG 07/13/2020 00:14:39 Sinus arrhythmia is noted Atrial premature complex(es) no longer present ST (T wave) deviation still present Electronically Signed On 10-20-2020 14:13:03 MANAGER FREELANCE by Ashu Brown [email or web address] <ELECTRONICALLY SIGNED> By: Ashu Brown MD, [facility] 10/20/20 1413 1404 1404 Ashu Brown MD, [facility] /EPI
== END 2020-10-19 15:37 | disposition home or self-care (01) ==
LOC: M.ERS 13:07
PROVIDERS: Nurse Practitioner Family
DX: N39.0 Urinary tract infection, site not specified (principal); R11.15 Cyclical vomiting syndrome unrelated to migraine; J45.909 Unspecified asthma, uncomplicated; G43.909 Migraine, unspecified, not intractable, without status migrainosus; G89.29 Other chronic pain; F17.210 Nicotine dependence, cigarettes, uncomplicated; Z90.89 Acquired absence of other organs; Z98.890 Other specified postprocedural states; Z90.49 Acquired absence of other specified parts of digestive tract; Z88.1 Allergy status to other antibiotic agents; Z88.0 Allergy status to penicillin; Z88.2 Allergy status to sulfonamides; Z88.8 Allergy status to other drugs, medicaments and biological substances; Z79.899 Other long term (current) drug therapy

== ENCOUNTER 2021-03-02 16:45 | Emergency (ER) | payer OTHER, MEDICAID ==
[~2021-03-02] VITALS: Ht 157.5 cm; Wt 51.7 kg
[~2021-03-02 16:45] MED LIST changes: +MACROBID 100 M100 M2 PO; +PHENAZOPYRIDIN200 M2 PO
[2021-03-02] MEDS ORDERED: PROMS25 WY RECTAL (17:03)
[2021-03-02] MEDS ORDERED: ZOFRAN ODT4 MG DISSOLVE (17:03)
[2021-03-02] MEDS ORDERED: TRANSDERM-SCOP1 EACH TRANSDERM (17:03)
[2021-03-02] MEDS ORDERED: CARAFATE 1 GM TA1 G1 PO (17:03)
[2021-03-02 17:25] VITALS: BP 105/73
--- NOTE | 2021-03-03 14:33 | EKG ---
[place] [address] ELECTROCARDIOGRAM REPORT Name: THOMAS BAUER Room: 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 : 1985 Requested By: Coleman Vance Order Number: [id number] MD: Ashu Brown Measurements Intervals [place] Rate: 114 P: 54 [place]: 114 QRS: 87 QRSD: 101 T: -56 QT: 331 QTc: 456 Interpretive Statements Sinus tachycardia Probable left atrial enlargement Repol abnrm suggests ischemia, anterolateral Compared to ECG 10/19/2020 14:04:34 Early repolarization now present Possible ischemia now present Sinus arrhythmia no longer present Electronically Signed On 03-03-2021 14:32:54 CDT by Ashu Brown [email or web address] <ELECTRONICALLY SIGNED> By: Ashu Brown MD, [facility] 03/03/21 1432 1656 1656 Ashu Brown MD, [facility] /EPI
== END 2021-03-02 17:25 | disposition home or self-care (01) ==
LOC: M.ERS 16:45
DX: R11.15 Cyclical vomiting syndrome unrelated to migraine (principal); J45.909 Unspecified asthma, uncomplicated; G43.909 Migraine, unspecified, not intractable, without status migrainosus; Z98.890 Other specified postprocedural states; Z90.49 Acquired absence of other specified parts of digestive tract

== ENCOUNTER 2021-06-12 01:09 | Emergency (ER) | payer OTHER, MEDICAID ==
[~2021-06-12] VITALS: Ht 160 cm; Wt 74.8 kg
[~2021-06-12 01:09] MED LIST changes: +TRANSDERM-SCOP1 EACH TRANSDERM
[2021-06-12 03:00] VITALS: BP 110/57
== END 2021-06-12 03:03 | disposition home or self-care (01) ==
LOC: M.ERS 01:09
DX: S00.83XA Contusion of other part of head, initial encounter (principal); G43.909 Migraine, unspecified, not intractable, without status migrainosus; R11.2 Nausea with vomiting, unspecified; R42 Dizziness and giddiness; J45.909 Unspecified asthma, uncomplicated; F17.210 Nicotine dependence, cigarettes, uncomplicated; Z90.89 Acquired absence of other organs; Z98.890 Other specified postprocedural states; Z90.49 Acquired absence of other specified parts of digestive tract; Z88.0 Allergy status to penicillin; Z88.1 Allergy status to other antibiotic agents; Z88.8 Allergy status to other drugs, medicaments and biological substances; Z88.2 Allergy status to sulfonamides; W50.0XXA Accidental hit or strike by another person, initial encounter; Y93.89 Activity, other specified; Y92.098 Other place in other non-institutional residence as the place of occurrence of the external cause; Y99.8 Other external cause status

== ENCOUNTER 2021-09-09 21:47 | Emergency (ER) | payer OTHER, MEDICAID ==
[~2021-09-09] VITALS: Ht 160 cm; Wt 81.7 kg
[2021-09-09] MEDS ORDERED: BENADRYL25 MG PO (21:56)
[2021-09-09] MEDS ORDERED: APAP W/CODEINE1 TA2 PO (21:56)
[2021-09-09] MEDS ORDERED: ONDANSETRON ODT4 MG PO (21:56)
[2021-09-10 02:17] LABS: HEMOGLOBIN 14.5 gm/dL (12.0-15.0); NUCLEATED RBCS 0 /100WBC
[2021-09-10] MEDS ORDERED: HYDROCODON-ACE1 EAC7 PO (02:17)
[2021-09-10 02:18] LABS: BASOPHILS 0.4 %
[2021-09-10 02:23] LABS: ABSOLUTE EOSINOPHILS 0.1 thou/uL (0.0-0.7); ABSOLUTE LYMPHOCYTES 1.9 thou/uL (0.8-5.3); ABSOLUTE MONOCYTES 0.7 thou/uL (0.0-1.2); EOSINOPHILS 0.4 %; HEMATOCRIT 42.1 % (37.0-47.0); LYMPHOCYTES 14.9 %; MCH 32.1 pg (26.0-34.0); MCHC 34.3 g/dL (28.0-37.0); MCV 93.4 fL (80.0-100.0); MONOCYTES 5.4 %; MPV 8.8 fl. (7.2-11.1); PLATELET COUNT* 225 thou/uL (150-400); POLYS 78.9 %; RBC 4.51 mil/uL (4.20-5.00); RDW-CV 13.5 % (10.5-14.5); WBC 12.7 thou/uL (4.0-11.0)
[2021-09-10 02:28] LABS: CREATININE 0.7 mg/dL (0.6-1.3); POTASSIUM 3.7 mmol/L (3.5-5.1)
[2021-09-10 02:33] LABS: TOTAL BILIRUBIN 0.6 mg/dL (<0.1-1.0); TOTAL PROTEIN 7.2 g/dL (6.4-8.2)
[2021-09-10 03:02] LABS: URINE BILIRUBIN NEGATIVE (Negative); URINE BLOOD 3+ (Negative); URINE CLARITY CLEAR; URINE COLOR YELLOW; URINE GLUCOSE-RANDOM NEGATIVE (Negative); URINE KETONES 2+ (Negative); URINE LEUKOCYTES-REFLEX NEGATIVE (Negative); URINE NITRITE-REFLEX NEGATIVE (Negative); URINE PROTEIN NEGATIVE (Negative); URINE SPECIFIC GRAVITY 1.015 (1.005-1.030); URINE UROBILINOGEN 0.2 E.U./dl (0.2-1.0)
[2021-09-10 03:21] LABS: CASTS None Seen /LPF (None Seen); SQUAMOUS >10 Many /LPF (0-3)
[2021-09-10 03:22] LABS: BACTERIA-REFLEX 1-9 Few /HPF (None Seen); CRYSTALS None Seen /LPF (None Seen); MUCUS 0-3 Light strn/LPF (None Seen); URINE WBC-REFLEX None Seen /HPF (0-5)
[2021-09-10 03:28] LABS: AMP/METHAMP Negative (Negative); BARBITURATES Negative (Negative); BENZODIAZEPINES Negative (Negative); COCAINE Negative (Negative); METHADONE Negative (Negative); OPIATES POSITIVE (Negative); PCP Negative (Negative); THC POSITIVE (Negative)
[2021-09-10 04:25] VITALS: BP 115/70
--- NOTE | 2021-09-10 12:13 | EKG ---
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1985 Requested By: Anitha Barrera Order Number: [id number] MD: Wei Kirby Measurements Intervals [place] Rate: 88 P: 59 [place]: 136 QRS: 73 QRSD: 104 T: 13 QT: 378 QTc: 458 Interpretive Statements Sinus rhythm RSR prime, probable normal variant compared to ECG 03/02/2021 16:56:11 Sinus tachycardia no longer present Early repolarization no longer present Possible ischemia no longer present Electronically Signed On 09-10-2021 12:13:26 SHOE COVERER by Wei Kirby [email or web address] <ELECTRONICALLY SIGNED> By: Wei Kirby MD, FACC 09/10/21 1213 58 58 Wei Kirby MD, [facility] /EPI
== END 2021-09-10 04:26 | disposition home or self-care (01) ==
LOC: M.ERS 21:47
PROVIDERS: Personal Emergency Response Attendant
DX: K85.90 Acute pancreatitis without necrosis or infection, unspecified (principal); T50.905A Adverse effect of unspecified drugs, medicaments and biological substances, initial encounter; J45.909 Unspecified asthma, uncomplicated; G43.909 Migraine, unspecified, not intractable, without status migrainosus; F17.210 Nicotine dependence, cigarettes, uncomplicated; Z90.89 Acquired absence of other organs; Z98.890 Other specified postprocedural states; Z90.49 Acquired absence of other specified parts of digestive tract; Z79.899 Other long term (current) drug therapy; Z88.1 Allergy status to other antibiotic agents; Z88.0 Allergy status to penicillin; Z88.2 Allergy status to sulfonamides; Z88.8 Allergy status to other drugs, medicaments and biological substances; Y92.89 Other specified places as the place of occurrence of the external cause

== ENCOUNTER 2021-10-24 05:05 | Emergency (ER) | payer OTHER, MEDICAID ==
[~2021-10-24] VITALS: Ht 160 cm; Wt 83.9 kg
[~2021-10-24 05:05] MED LIST changes: +APAP W/CODEINE1 TA2 PO; +HYDROCODON-ACE1 EAC7 PO
[2021-10-24] MEDS ORDERED: CARAFATE1 GM PO (05:19)
[2021-10-24 06:11] LABS: ABSOLUTE BASOPHILS 0.1 thou/uL (0.0-0.2); ABSOLUTE LYMPHOCYTES 1.3 thou/uL (0.8-5.3); ABSOLUTE MONOCYTES 0.7 thou/uL (0.0-1.2); ABSOLUTE NEUTROPHILS 8.6 thou/uL (1.6-8.1); BASOPHILS 0.5 %; EOSINOPHILS 0.4 %; HEMATOCRIT 45.9 % (37.0-47.0); HEMOGLOBIN 15.8 gm/dL (12.0-15.0); MCH 32.7 pg (26.0-34.0); MCHC 34.4 g/dL (28.0-37.0); MCV 94.9 fL (80.0-100.0); MONOCYTES 6.5 %; NUCLEATED RBCS 0 /100WBC; PLATELET COUNT* 216 thou/uL (150-400); POLYS 80.6 %; RBC 4.84 mil/uL (4.20-5.00); RDW-CV 14.2 % (10.5-14.5); WBC 10.7 thou/uL (4.0-11.0)
[2021-10-24 06:25] LABS: CALCIUM 9.6 mg/dL (8.5-10.1); CREATININE 1.1 mg/dL (0.6-1.3); POTASSIUM 3.7 mmol/L (3.5-5.1)
[2021-10-24 06:29] LABS: ALBUMIN 4.7 g/dL (3.4-5.0); TOTAL BILIRUBIN 0.6 mg/dL (<0.1-1.0); TOTAL PROTEIN 8.3 g/dL (6.4-8.2)
[2021-10-24 06:30] LABS: AMP/METHAMP Negative (Negative); BARBITURATES Negative (Negative); BENZODIAZEPINES POSITIVE (Negative); COCAINE Negative (Negative); METHADONE Negative (Negative); OPIATES Negative (Negative); PCP Negative (Negative); THC POSITIVE (Negative)
[2021-10-24] MEDS ORDERED: ZOFRAN ODT4 MG DISSOLVE (07:43)
[2021-10-24 08:13] VITALS: BP 123/46
--- NOTE | 2021-10-24 15:59 | EKG ---
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
== END 2021-10-24 08:13 | disposition home or self-care (01) ==
LOC: M.ERS 05:05
PROVIDERS: Personal Emergency Response Attendant
DX: R11.10 Vomiting, unspecified (principal); R10.13 Epigastric pain; R10.32 Left lower quadrant pain; F15.129 Other stimulant abuse with intoxication, unspecified; J45.909 Unspecified asthma, uncomplicated; G43.909 Migraine, unspecified, not intractable, without status migrainosus; F17.210 Nicotine dependence, cigarettes, uncomplicated; F12.90 Cannabis use, unspecified, uncomplicated; Z98.890 Other specified postprocedural states; Z90.89 Acquired absence of other organs; Z90.49 Acquired absence of other specified parts of digestive tract; Z79.899 Other long term (current) drug therapy; Z88.6 Allergy status to analgesic agent; Z88.1 Allergy status to other antibiotic agents; Z88.0 Allergy status to penicillin; Z88.2 Allergy status to sulfonamides; Z88.8 Allergy status to other drugs, medicaments and biological substances